=== PATIENT | male | born 1980 | race Caucasian/White ===

== ENCOUNTER 2017-04-01 01:01 | Emergency (ER) | payer MEDICAID ==
[2017-04-01] MEDS ORDERED: ONDANSETRON HCL IV 4 MG/2 ML VIAL IVP ONE (01:06)
--- NOTE | 2017-04-01 01:14 | Emergency Department Record ---
History of Present Illness - General Chief complaint: Weakness Stated complaint: WEAKNESS Time Seen by Provider: 04/01/17 01:05 Source: Patient Mode of Arrival: Wheelchair Limitations: No limitations - History of Present Illness Initial comments: 36 yo male presents to ED with a CC of bilateral lower extremity weakness. Patient reports that he was seen in [place] earlier today and diagnosed with dehydration. Per the patient's caregiver (sister) at the bedside, the patient has been eating and drinking less today as he is down to his last ostomy bag. Sister reports similar symptoms previously. Patient does reports mild, diffuse abdominal pain and chills today as well. MD Complaint: Generalized weakness Onset/Timin -: Days(s) Location: Generalized Severity: Moderate Consistency: Constant Improves with: None Worsens with: None Context: History of similar Associated Symptoms: Other - Ayanna Coma Scale Eye Response: (4) Open spontaneously Motor Response: (6) Obeys commands Verbal Response: (5) Oriented [place] Total: 15 - Related Data Home Medications Medication Instructions Recorded Confirmed Last Taken Carbamazepine 200 mg PO TID 04/01/17 04/01/17 Unknown Diphenhydramine HCl [Benadryl] 50 mg PO TID 04/01/17 04/01/17 Unknown Divalproex Sodium [Depakote] 500 mg PO BID 04/01/17 04/01/17 Unknown Ethosuximide [Zarontin] 250 mg PO TID 04/01/17 04/01/17 Unknown Latanoprost 0.005% Opth Chloé 2.5 ml OP QHS 04/01/17 04/01/17 Unknown [Xalatan] Allergies Allergy/AdvReac Type Severity Reaction Status Date / Time Penicillins Allergy RASH Verified 04/01/17 01:11 phenobarbital Allergy TREMORS Verified 04/01/17 01:11 Review of Systems Constitutional: Reports: Chills, Weakness. Denies: Fever, Malaise, Night sweats Eyes: Denies: Eye discharge, Eye pain ENT: Denies: Congestion, Ear pain, Epistaxis Respiratory: Denies: Cough, Dyspnea Cardiovascular: Denies: Chest pain, Dyspnea on exertion Endocrine: Denies: Fatigue, Heat or cold intolerance Gastrointestinal: Reports: Abdominal pain, Diarrhea (Increased output to his ostomy on examination), Vomiting. Denies: Constipation Genitourinary: Denies: Incontinence, Retention Musculoskeletal: Denies: Arthralgia, Back pain, Gout, Joint swelling Skin: Denies: Bruising, Change in color Neurological: Reports: Abnormal gait (due to weakness). Denies: Confusion, Headache, Seizure Psychiatric: Denies: Anxiety Hematological/Lymphatic: Denies: Anemia, Blood Clots Physical Exam - General General Appearance: Alert, Oriented x3, Cooperative, Mild distress Limitations: No limitations - Head Head exam: Atraumatic, Normocephalic, Normal inspection Head exam detail: negative: Abrasion, Contusion, Angel's sign, General tenderness, Hematoma, Laceration - Eye Eye exam: Normal appearance. negative: Conjunctival injection, Periorbital swelling, Periorbital tenderness, Scleral icterus - ENT Ear exam: negative: Auricular hematoma, Auricular trauma Nasal Exam: negative: Active bleeding, Discharge, Dried blood, Foreign body Mouth exam: negative: Drooling, Laceration, Muffled voice, Tongue elevation - Neck Neck exam: Normal inspection. negative: Meningismus, Tenderness - Respiratory Respiratory exam: Normal lung sounds bilaterally. negative: Rales, Respiratory distress, Rhonchi, Stridor - Cardiovascular Cardiovascular Exam: Normal rhythm, Normal heart sounds, Tachycardia (105) - GI/Abdominal GI/Abdominal exam: Soft, Distended, Tenderness (Mild, diffuse TTP on examination , liquid stool is present in the patient's ostomy). negative: Rebound, Rigid - Rectal Rectal exam: Deferred - exam: Deferred - Extremities Extremities exam: Other (Mild contractures to the UEs bilaterally, no focal weakness on examination). negative: Calf tenderness, Pedal edema, Tenderness - Back Back exam: Denies: CVA tenderness (R), CVA tenderness (L) - Neurological Neurological exam: Alert, CN II-XII intact, Oriented X3. negative: Motor sensory deficit - Psychiatric Psychiatric exam: Normal affect, Normal mood - Skin Skin exam: Normal color. negative: Abrasion Type of lesion: negative: abrasion Course - Reevaluation(s) Reevaluation #1: 04/01/17 01:12 Labs reviewed from [facility], BUN 42, Creatinine 1.5. Labs are otherwise grossly unremarkable for an acute process. MDM: Patient exhibits no focal neurological deficits on examination, and the patient's weakness symptoms are felt to be metabolic in etiology. CT imaging of the abdomen and pelvis ordered for further evaluation of the patient's "hiccups" and abdominal pain symptoms. Reevaluation #2: 04/01/17 02:35 Laboratory studies reviewedm Lactic acid 2.2, labs are otherwise grossly unremarkable for an acute process. Patient was taken to CT for imaging. Reevaluation #3: 04/01/17 03:28 CT Abdomen and Pelvis: SBO with transition point at the iliostomy Patient and family were updated on CT imaging and laboratory study results, will transfer to [facility] for further evaluation. Case was discussed with Dr. Beatty, will accept transfer for admission and surgical consultation. 04/01/17 03:42 Medical Decision Making - Lab Data Result diagrams: 04/01/17 02:05 04/01/17 02:05 Disposition Disposition: Transfer Clinical Impression: SBO (small bowel obstruction), Ileostomy obstruction Epilepsy Qualifiers: Epilepsy type: unspecified Intractability: not intractable Status epilepticus: without status epilepticus Qualified Code(s): G40.909 - Epilepsy, unspecified, not intractable, without status epilepticus Disposition: Acute Care Hospital Transfer Transfer To: [facility] Reason For Transfer: Surgical Consultation Accepting Physician: Jaci Time Discussed w/Accepting Physician: 03:33 Forms: Patient Portal Access Time of Disposition: 03:43 Quality - Quality Measures Quality Measures: N/A - Blood Pressure Screening Does Patient Have Any of the Following: No Blood Pressure Classification: Hypertensive Reading Systolic Measurement: 138 Diastolic Measurement: 100 Screening for High Blood Pressure: < First Hypertensive BP, F/U Documented > [ G8950] First Hypertensive Follow-up Interventions: Referral to alternative/primary care provider.
[2017-04-01] MEDS ORDERED: 0.9 % SODIUM CHLORIDE 1000ML 1,000 ML IV SCH (01:15)
[2017-04-01 02:12] LABS: HEMATOCRIT 45.2 % (42.0-52.0); HEMOGLOBIN 15.5 gm/dl (14.0-18.0); MEAN CORPUSCULAR HEMOGLOBIN 32.9 pg (27-33); MEAN CORPUSCULAR HGB CONC 34.3 g/dl (32-36); PLATELET COUNT 343 K/uL (130-400); RED BLOOD COUNT 4.71 M/uL (4.40-5.70); RED CELL DISTRIBUTION WIDTH 14.2 % (11.5-14.5)
[2017-04-01 02:23] LABS: LACTIC ACID 2.2 mmol/L (0.7-2.1)
[2017-04-01 02:27] LABS: BLOOD UREA NITROGEN 40 mg/dL (9-20); GLUCOSE,RANDOM 132 mg/dL (70-110)
[2017-04-01 02:28] LABS: ALB/GLOB RATIO 1.1 (1.1-1.8); ALBUMIN 3.9 gm/dL (3.5-5.0); ALT/SGPT 33 U/L (21-72); AST/SGOT 28 U/L (17-59); CREATININE 0.9 mg/dL (0.66-1.25); EST GLOMERULAR FILTRATION RATE > 60 ml/min; TOTAL PROTEIN 7.6 gm/dL (6.3-8.2)
[2017-04-01 02:29] LABS: ALKALINE PHOSPHATASE 68 U/L (38-126); LIPASE 46 U/L (23-300)
--- NOTE | 2017-04-02 12:34 | CT SCAN REPORT ---
DATE: 04/01/2017. EXAM: CT SCAN OF THE ABDOMEN AND PELVIS WITHOUT CONTRAST. HISTORY: Abdominal pain. TECHNIQUE: Sequential axial images were obtained from the diaphragms through the ischiorectal fossa without intravenous or oral contrast administration. FINDINGS: There is atelectasis in both lung bases. The nonopacified liver, gallbladder, and pancreas appear normal. There is severe atrophy of the spleen. The adrenal glands and kidneys appear normal. No CT findings suggestive of obstructive uropathy. The patient is status post colectomy. There is an ostomy in the right lower quadrant. There is distension of the small bowel loops which are fluid filled. There is an abrupt transition at the ostomy site. There is a midline ventral wall hernia containing small bowel. No evidence of incarceration. The urinary bladder appears normal. The osseus structures are normal. IMPRESSION: 1. SMALL BOWEL OBSTRUCTION AT THE ILEOSTOMY SITE. 2. MIDLINE VENTRAL WALL HERNIA CONTAINING SMALL BOWEL. NO EVIDENCE OF INCARCERATION. JOB NUMBER: [id number] MTDD
== END 2017-04-01 04:48 | disposition short-term general hospital (02) ==
LOC: ER 01:01
DX: K94.13 Enterostomy malfunction (principal); K56.69 Other intestinal obstruction; Y83.8 Other surgical procedures as the cause of abnormal reaction of the patient, or of later complication, without mention of misadventure at the time of the procedure; G40.909 Epilepsy, unspecified, not intractable, without status epilepticus
CPT/HCPCS: 99285 ×2; 96374; 83605; 83690; 80053; 85027; 74176; Q9967; J2405; J7030

== ENCOUNTER 2017-04-28 15:23 | Emergency (ER) | payer MEDICAID ==
--- NOTE | 2017-04-28 15:40 | Emergency Department Record ---
History of Present Illness - General Source: Patient Mode of Arrival: Wheelchair Limitations: No limitations - History of Present Illness Initial comments: 36 yo male presents with nausea and vomiting that started today. He was seen at [facility] 03/31 and diagnosed with a SBO. [place] [facility] he was diagnosed with C. Diff. He has had an ostomy for 24 years. The current output in the ostomy has returned to normal amount. His current symptoms started today with nausea, vomiting and abdominal pain around 10:30am. No blood in the vomit. PCP is Dr Acharya. complaint: Nausea, Vomiting -: Hour(s) Description of Vomiting: Watery Description of Diarrhea: Water Severity: Moderate Quality: Cramping Consistency: Constant Improves with: None Worsens with: Vomiting <EMERY KANG - Last Filed: 04/28/17 19:15> <Jono Walker - Last Filed: 04/28/17 19:54> - General Chief complaint: Nausea, Vomiting, Diarrhea Stated complaint: NAUSEA - Related Data Home Medications Medication Instructions Recorded Confirmed Last Taken Vancomycin HCl 10 ml PO QID 04/28/17 04/28/17 Unknown Previous Rx's Medication Instructions Recorded Ondansetron [Zofran Odt] 4 mg PO Q8H #20 tab.rapdis 04/28/17 Allergies Allergy/AdvReac Type Severity Reaction Status Date / Time Penicillins Allergy RASH Verified 04/28/17 15:29 phenobarbital Allergy TREMORS Verified 04/28/17 15:29 Review of Systems Constitutional: Reports: Chills, Malaise. Denies: Fever Eyes: Denies: Eye discharge ENT: Denies: Congestion, Throat pain Respiratory: Denies: Cough, Dyspnea, Hemoptysis, Stridor, Wheezes Cardiovascular: Denies: Chest pain, Palpitations, Syncope Endocrine: Denies: Fatigue Gastrointestinal: Reports: Abdominal pain, Diarrhea, Nausea, Vomiting Genitourinary: Denies: Dysuria, Frequency, Hematuria Musculoskeletal: Denies: Arthralgia, Back pain, Myalgia, Neck pain Neurological: Denies: Abnormal gait, Confusion, Headache Psychiatric: Denies: Anxiety Hematological/Lymphatic: Denies: Blood Clots, Easy bleeding, Easy bruising, Swollen glands <EMERY KANG - Last Filed: 04/28/17 19:15> Past Medical History - SOCIAL HISTORY Smoking Status: Never smoker Drug Use: None - RESPIRATORY Hx Respiratory Disorders: No - CARDIOVASCULAR Hx Cardio Disorders: No - NEURO Hx Neuro Disorders: Yes Hx Seizures: Yes (DAILY) Comment:: EPILEPSY - GI Hx GI Disorders: No - Hx Genitourinary Disorders: No - ENDOCRINE Hx Endocrine Disorders: No - MUSCULOSKELETAL Hx Musculoskeletal Disorders: No - PSYCH Hx Psych Problems: Yes Comment:: "MENTALLY SLOW" - HEMATOLOGY/ONCOLOGY Hx Hematology/Oncology Disorders: No <EMERY KANG - Last Filed: 04/28/17 19:15> Physical Exam - General General Appearance: Alert, Oriented x3, Cooperative, No acute distress Limitations: No limitations - Head Head exam: Normal inspection - Eye Eye exam: Normal appearance, PERRL. negative: Conjunctival injection, Periorbital swelling - ENT ENT exam: Normal exam, Mucous membranes moist Ear exam: Normal external inspection Nasal Exam: Normal inspection Mouth exam: Normal external inspection - Neck Neck exam: Normal inspection, Full ROM. negative: Tenderness - Respiratory Respiratory exam: Normal lung sounds bilaterally. negative: Respiratory distress - Cardiovascular Cardiovascular Exam: Regular rate, Normal rhythm, Normal heart sounds - GI/Abdominal GI/Abdominal exam: Soft, Tenderness (soft but diffuse tenderness), Other ( ostomy intact with stool. medium green in color no blood) - Rectal Rectal exam: Deferred - exam: Deferred - Extremities Extremities exam: Normal inspection, Full ROM, Normal capillary refill. negative: Tenderness - Back Back exam: Reports: Normal inspection <EMERY KANG - Last Filed: 04/28/17 19:15> Course - Reevaluation(s) Reevaluation #1: The patient is doing much better but still has some nausea CT is pending The labs are without any acute changes. 04/28/17 18:[address] scan was negative for any acute process. No obstruction or acute changes. 04/28/17 18:53 minimal increase in lipase at 102 04/28/17 19:01 The patient is clinically doing well. He is ready for an oral challenge. If he is able to tolerate PO for a while he will go home mild diet with Zofran as needed. The case was signed out to Dr Walker. Refer to his chart for final disposition 04/28/17 19:06 <EMERY KANG - Last Filed: 04/28/17 19:15> Vital Signs 04/28/17 15:35 Temperature 98 F Pulse Rate 88 Respiratory 20 Rate Blood Pressure 139/96 Pulse Ox 99 - Reevaluation(s) Reevaluation #2: The patient is doing very well at this time. He has had no nausea or vomiting or pain and is keeping fluids down. Mom and dad are comfortable taking him home. They do understand the need to return if his symptoms return. 04/28/17 19:53 <Jono Walker - Last Filed: 04/28/17 19:54> Medical Decision Making - Lab Data Result diagrams: 04/28/17 17:37 04/28/17 17:37 <EMERY KANG - Last Filed: 04/28/17 19:15> - Lab Data Result diagrams: 04/28/17 17:37 04/28/17 17:37 Lab Results 04/28/17 04/28/17 04/28/17 Range/Units 17:37 17:37 17:37 WBC 3.3 L (4.2-12.2) K/uL RBC 3.87 L (4.40-5.70) M/uL Hgb 13.0 L (14.0-18.0) gm/dl Hct 39.0 L (42.0-52.0) % MCV 100.8 H (81-97) fl MCH 33.5 H (27-33) pg MCHC 33.3 (32-36) g/dl RDW 14.6 H (11.5-14.5) % Plt Count 391 (130-400) K/uL MPV 10.2 (7.4-10.4) fl Gran % 79.7 (47-80) % Lymphocytes % 11.2 L (16-45) % Monocytes % 7.9 (0-9) % Eosinophils % 0.9 (0-6) % Basophils % 0.3 (0-6) % Sodium 139 (136-145) mmol/L Potassium 4.2 (3.4-4.5) mmol/L Chloride 99 (98-107) mmol/L Carbon Dioxide 27.0 (22-29) mmol/L Anion Gap 13.0 (7-16) BUN 15 (6-20) mg/dL Creatinine 0.5 L (0.7-1.2) mg/dL Estimated GFR > 60 mL/min Random Glucose 112 H (74-109) mg/dL Calcium 9.0 (8.6-10.0) mg/dL Total Bilirubin 0.20 (0.2-1.0) mg/dL Direct Bilirubin 0.2 (0-0.3) mg/dL AST 27 (10.0-50.0) U/L ALT 18 (<41) U/L Alkaline Phosphatase 69 (40-129) U/L Total Protein 7.4 (6.6-8.7) g/dL Albumin 3.9 L (4.0-5.0) g/dL Lipase (13-60) U/L Urine Color Yellow Urine Appearance Clear Urine pH 6.0 (5.0-8.0) Ur Specific [place] >= 1.030 (1.002-1.030) Urine Protein Negative (NEGATIVE) Urine Glucose (UA) Negative (NEGATIVE) Urine Ketones 15 mg/dl H (NEGATIVE) Urine Blood Negative (NEGATIVE) Urine Nitrite Negative (NEGATIVE) Urine Bilirubin Negative (NEGATIVE) Urine Urobilinogen 0.2 (0.20 - 1.00) E.U./dL Ur Leukocyte Esterase Negative (NEGATIVE) 04/28/17 Range/Units 17:37 WBC (4.2-12.2) K/uL RBC (4.40-5.70) M/uL Hgb (14.0-18.0) gm/dl Hct (42.0-52.0) % MCV (81-97) fl MCH (27-33) pg MCHC (32-36) g/dl RDW (11.5-14.5) % Plt Count (130-400) K/uL MPV (7.4-10.4) fl Gran % (47-80) % Lymphocytes % (16-45) % Monocytes % (0-9) % Eosinophils % (0-6) % Basophils % (0-6) % Sodium (136-145) mmol/L Potassium (3.4-4.5) mmol/L Chloride (98-107) mmol/L Carbon Dioxide (22-29) mmol/L Anion Gap (7-16) BUN (6-20) mg/dL Creatinine (0.7-1.2) mg/dL Estimated GFR mL/min Random Glucose (74-109) mg/dL Calcium (8.6-10.0) mg/dL Total Bilirubin (0.2-1.0) mg/dL Direct Bilirubin (0-0.3) mg/dL AST (10.0-50.0) U/L ALT (<41) U/L Alkaline Phosphatase (40-129) U/L Total Protein (6.6-8.7) g/dL Albumin (4.0-5.0) g/dL Lipase 102 H (13-60) U/L Urine Color Urine Appearance Urine pH (5.0-8.0) Ur Specific [place] (1.002-1.030) Urine Protein (NEGATIVE) Urine Glucose (UA) (NEGATIVE) Urine Ketones (NEGATIVE) Urine Blood (NEGATIVE) Urine Nitrite (NEGATIVE) Urine Bilirubin (NEGATIVE) Urine Urobilinogen (0.20 - 1.00) E.U./dL Ur Leukocyte Esterase (NEGATIVE) <Jono Walker - Last Filed: 04/28/17 19:54> Disposition Disposition: Discharge <EMERY KANG - Last Filed: 04/28/17 19:15> Time of Disposition: 19:54 <Jono Walker - Last Filed: 04/28/17 19:54> Clinical Impression: Vomiting Qualifiers: Vomiting type: unspecified Vomiting Intractability: non-intractable Nausea presence: without nausea Qualified Code(s): R11.11 - Vomiting without nausea Disposition: Home, Self-Care Condition: (1) Good Instructions: Acute Nausea and Vomiting (ED) Additional Instructions: return if you have fever, pain, or vomiting continue your Vancomycin as directed Call your doctor on Sunday for close follow up Prescriptions: Ondansetron [Zofran Odt] 4 mg PO Q8H #20 tab.rapdis Forms: Patient Portal Access Quality - Quality Measures Quality Measures: N/A - Blood Pressure Screening Does Patient Have Any of the Following: No Blood Pressure Classification: Hypertensive Reading Systolic Measurement: 139 Diastolic Measurement: 96 Screening for High Blood Pressure: < Pre-Hypertensive BP, F/U Documented > [ G8950] Pre-Hypertensive Follow-up Interventions: Referral to alternative/primary care provider. <EMERY KANG - Last Filed: 04/28/17 19:15> - Blood Pressure Screening Does Patient Have Any of the Following: No Blood Pressure Classification: Hypertensive Reading Systolic Measurement: 139 Diastolic Measurement: 96 <Jono Walker - Last Filed: 04/28/17 19:54>
[2017-04-28] MEDS ORDERED: 0.9 % SODIUM CHLORIDE 1,000 ML BAG IV ONE (15:54)
[2017-04-28] MEDS ORDERED: ONDANSETRON HCL IV 4 MG/2 ML VIAL IV ONE (15:54)
[2017-04-28 17:52] LABS: BASO % 0.3 % (0-6); EOS % 0.9 % (0-6); GRAN % 79.7 % (47-80); LYMPH % 11.2 % (16-45); MEAN CELL VOLUME 100.8 fl (81-97); MEAN CORPUSCULAR HGB CONC 33.3 g/dl (32-36); MEAN PLATELET VOLUME 10.2 fl (7.4-10.4); MONO % 7.9 % (0-9); PLATELET COUNT 391 K/uL (130-400); RED BLOOD COUNT 3.87 M/uL (4.40-5.70); RED CELL DISTRIBUTION WIDTH 14.6 % (11.5-14.5); WHITE BLOOD COUNT W/O DIFF 3.3 K/uL (4.2-12.2)
[2017-04-28 17:55] LABS: URINE APPEARANCE CLEAR; URINE BILIRUBIN NEGATIVE (NEGATIVE); URINE BLOOD NEGATIVE (NEGATIVE); URINE COLOR YELLOW; URINE GLUCOSE (UA) NEGATIVE (NEGATIVE); URINE KETONE 15 mg/dL (NEGATIVE); URINE LEUKOCYTE ESTERASE NEGATIVE (NEGATIVE); URINE NITRITE NEGATIVE (NEGATIVE); URINE PROTEIN NEGATIVE (NEGATIVE); URINE UROBILINOGEN 0.2 E.U./dL (0.20 - 1.00)
[2017-04-28 17:56] LABS: MEAN CORPUSCULAR HEMOGLOBIN 33.5 pg (27-33)
[2017-04-28 18:08] LABS: ALBUMIN 3.9 g/dL (4.0-5.0); ALKALINE PHOSPHATASE 69 U/L (40-129); ALT/SGPT 18 U/L (<41); AST/SGOT 27 U/L (10.0-50.0); BILIRUBIN,DIRECT 0.2 mg/dL (0-0.3); BLOOD UREA NITROGEN 15 mg/dL (6-20); CREATININE 0.5 mg/dL (0.7-1.2); EST GLOMERULAR FILTRATION RATE > 60 mL/min; GLUCOSE,RANDOM 112 mg/dL (74-109); TOTAL PROTEIN 7.4 g/dL (6.6-8.7)
[2017-04-28] MEDS ORDERED: ONDANSETRON HCL IV 4 MG/2 ML VIAL IVP ONE (18:45)
--- NOTE | 2017-04-30 09:16 | CT SCAN REPORT ---
EXAM: CT OF THE ABDOMEN AND PELVIS HISTORY: VOMITING. TECHNIQUE: CT of the abdomen and pelvis was performed following IV administration of 94 ml of Omnipaque 300 contrast. Oral contrast was also utilized. Comparison: Prior CT from 04/01/17. FINDINGS: Limited evaluation of the lung bases is unremarkable. The osseous structures are grossly intact. The liver, spleen, adrenal glands, pancreas, and kidneys are unremarkable. Right lower quadrant ostomy. No evidence for bowel obstruction on today's exam. Contrast is identified extending into the ostomy. Laxity of the anterior abdominal wall musculature near the midline umbilicus, without definitive hernia. Lobulated appearance to the urinary bladder. No free air or free fluid. The appendix is not well seen. No pericecal inflammation. IMPRESSION: NEGATIVE FOR AN ACUTE INTRAABDOMINAL/PELVIC PROCESS. POST SURGICAL CHANGES, ABOVE. JOB NUMBER: [id number] MTDD
== END 2017-04-28 20:04 | disposition home or self-care (01) ==
LOC: ER 15:23
DX: R11.12 Projectile vomiting (principal); R10.9 Unspecified abdominal pain
CPT/HCPCS: 99284 ×2; 96374; 96375; 83690; 85025; 80076; 80048; 81003; 74177; Q9967; J2405; J7030